=== PATIENT | male | born 1960 | race Caucasian/White ===

== ENCOUNTER 2016-11-01 09:10 | Observation (INO) | payer OTHER ==
[2016-11-01] VITALS (10 sets, daily range): BP systolic 99–126; BP diastolic 53–98; PULSE 67–85; RESP 16–20; TEMP 97.2–98.2; O2SAT 96–100
[~2016-11-01] VITALS: Ht 182.9 cm; Wt 85.1 kg
--- NOTE | 2016-11-01 09:27 | PD ---
HPI Chief Complaint: Chest Pain Time Seen by Provider: 09:15 Travel History International Travel<30 days: No (unknown) Contact w/Intl Traveler<30days: No (unknown) History of Present Illness HPI 56yo M with no PMH was sent here from urgent care with c/o left chest pain since 10pm last night. Pt states it is pressure, left sided, nonradiating and constant. Associated with intermittent numbness in left hand. +Productive cough. Denies any fever, sob, n/v, diaphoresis, abdominal pain, focal weakness. Chest pain is worst with movement and pt did go swimming yesterday. Pt denies any history of chest pain and has never seen a manager market research. +heavy daily cigarette smoker. Pt given aspirin 81mg and sublingual nitro x1 in urgent care. PFSH Social History Tobacco Use: Yes Allergies-Medications (Allergen,Severity, Reaction): Coded Allergies: No Known Allergies (Unverified , 11/01/16) Reported Meds & Prescriptions Reported Meds & Active Scripts Active Review of Systems Except as stated in HPI: all other systems reviewed are Neg Physical Exam Narrative GENERAL: 56yo M in mild distress. SKIN: Warm and dry. HEAD: Atraumatic. Normocephalic. EYES: Pupils equal and round. No scleral icterus. No injection or drainage. ENT: No nasal bleeding or discharge. Mucous membranes pink and moist. NECK: Trachea midline. No JVD. CARDIOVASCULAR: Regular rate and rhythm. No murmur appreciated. RESPIRATORY: No accessory muscle use. Clear to auscultation. Breath sounds equal bilaterally. CHEST WALL: +TTP left chest. No rash. GASTROINTESTINAL: Abdomen soft, non-tender, nondistended. Hepatic and splenic margins not palpable. MUSCULOSKELETAL: No obvious deformities. No clubbing. No cyanosis. No edema. No calf tenderness. NEUROLOGICAL: Awake and alert. No obvious cranial nerve deficits. Motor grossly within normal limits. Normal speech. PSYCHIATRIC: Appropriate mood and affect; insight and judgment normal. Data Data Last Documented VS Vital Signs Date Time Temp Pulse Resp B/P Pulse Ox O2 Delivery O2 Flow Rate FiO2 11/01/16 09:45 78 18 115/69 98 Room Air 11/01/16 09:22 98.2 Orders Basic Metabolic Panel (Bmp) (11/01/16 09:16) Ckmb (Isoenzyme) Profile (11/01/16 09:16) Complete Blood Count With Diff (11/01/16 09:16) Magnesium (Mg) (11/01/16 09:16) Prothrombin Time / Inr (Pt) (11/01/16 09:16) Act Partial Throm Time (Ptt) (11/01/16 09:16) Troponin I (11/01/16 09:16) Chest, Single Ap (11/01/16 09:16) Ecg Monitoring (11/01/16 09:16) Bilateral Bp Monitoring (11/01/16 09:16) Iv Access Insert/Monitor (11/01/16 09:16) Oximetry (11/01/16 09:16) Oxygen Administration (11/01/16 09:16) Ibuprofen (Motrin) (11/01/16 09:30) Admit Order (Ed Use Only) (11/01/16 10:34) Labs Laboratory Tests Test 11/01/16 09:15 White Blood Count 13.7 TH/MM3 Red Blood Count 4.75 MIL/MM3 Hemoglobin 14.6 GM/DL Hematocrit 44.0 % Mean Corpuscular Volume 92.7 FL Mean Corpuscular Hemoglobin 30.8 PG Mean Corpuscular Hemoglobin 33.2 % Concent Red Cell Distribution Width 11.9 % Platelet Count 339 TH/MM3 Mean Platelet Volume 9.0 FL Neutrophils (%) (Auto) 62.2 % Lymphocytes (%) (Auto) 27.1 % Monocytes (%) (Auto) 7.0 % Eosinophils (%) (Auto) 3.2 % Basophils (%) (Auto) 0.5 % Neutrophils # (Auto) 8.5 TH/MM3 Lymphocytes # (Auto) 3.7 TH/MM3 Monocytes # (Auto) 1.0 TH/MM3 Eosinophils # (Auto) 0.4 TH/MM3 Basophils # (Auto) 0.1 TH/MM3 CBC Comment DIFF FINAL Differential Comment Prothrombin Time 9.9 SEC Prothromb Time International 0.9 RATIO Ratio Activated Partial 27.7 SEC Thromboplast Time D-Dimer Quantitative (PE/DVT) 0.43 MG/L FEU Sodium Level 141 MEQ/L Potassium Level 4.1 MEQ/L Chloride Level 105 MEQ/L Carbon Dioxide Level 28.8 MEQ/L Anion Gap 7 MEQ/L Blood Urea Nitrogen 10 MG/DL Creatinine 0.99 MG/DL Estimat Glomerular Filtration 78 ML/MIN Rate Random Glucose 113 MG/DL Calcium Level 9.1 MG/DL Magnesium Level 1.9 MG/DL Total Creatine Kinase 93 U/L Troponin I LESS THAN 0.02 NG/ML MDM Medical Decision Making Medical Screen Exam Complete: Yes Emergency Medical Condition: Yes Interpretation(s) EKG: NSR 74bpm. Normal axis. No ST segment elevation or depression. Differential Diagnosis Atypical chest pain vs. PNA vs. musculoskeletal pain Narrative Course 56yo M with atypical chest pain since yesterday. However, pt is a heavy cig smoker and never had this before. Pt has not had recent cardiac work up. Will do ekg, CXR, labs, and give ibuprofen. Will admit for observation for chest pain center and possible cardiac stress test. Labs reviewed, leukocytosis at 13.7. Troponin negative. CXR negative. Pt given ibuprofen and pain improved. This does sound like atypical musculoskeletal chest pain but pt states that he does a lot of strenuous activity at work but never had this and sometimes he does become sob with walking. Pt agreed to admission for observation and serial EKG and cardiac enzyme. VS stable. Discussed with Dr. Avila and accepted to chest pain center. Diagnosis Primary Impression: Chest pain Qualified Code: R07.9 - Chest pain, unspecified type Admitting Information Admitting Physician Requests: Observation Scripts Clindamycin 300 Mg [id number] Mg PO Q6H #24 CAP Ref 0 Prov:Gema Brothers 11/03/16 Naproxen (Naproxen EC)500 Mg [id number] Mg PO BID PRN (inflammation) #10 TAB Ref 0 Prov:Gema Brothers 11/03/16 Aspirin (Aspirin EC)81 Mg [id number] Mg PO DAILY #30 TAB Ref 0 Prov:Gema Brothers 11/03/16 Sabrina Walton DO Nov 01, 2016 09:27
[2016-11-01] MEDS ORDERED: IBUPROFEN 600 MG TAB PO ONE (09:30)
[2016-11-01 09:34] LABS: AUTOMATED NEUTROPHIL # 8.5 TH/MM3 (1.8-7.7); BASOPHIL # 0.1 TH/MM3 (0-0.2); BASOPHIL % 0.5 % (0.0-2.0); EOSINOPHIL # 0.4 TH/MM3 (0-0.4); EOSINOPHIL % 3.2 % (0.0-4.0); LYMPH % 27.1 % (9.0-44.0); LYMPHOCYTE # 3.7 TH/MM3 (1.0-4.8); MEAN CELL VOLUME 92.7 FL (80.0-100.0); MEAN CORPUSCULAR HEMOGLOBIN 30.8 PG (27.0-34.0); MEAN CORPUSCULAR HGB CONC 33.2 % (32.0-36.0); NEUT % 62.2 % (16.0-70.0); PLATELET COUNT 339 TH/MM3 (150-450); RED BLOOD COUNT 4.75 MIL/MM3 (4.50-5.90); RED CELL DISTRIBUTION WIDTH 11.9 % (11.6-17.2); WHITE BLOOD COUNT 13.7 TH/MM3 (4.0-11.0)
[2016-11-01 09:35] LABS: HEMO FLAGS DIFF FINAL
[2016-11-01 09:49] LABS: APTT (PATIENT) 27.7 SEC (24.3-30.1); INTERNATIONAL NORMALIZED RATIO 0.9 RATIO; PROTHROMBIN TIME - PATIENT 9.9 SEC (9.8-11.6)
[2016-11-01 09:51] LABS: BICARBONATE 28.8 MEQ/L (21.0-32.0); BLOOD UREA NITROGEN 10 MG/DL (7-18)
[2016-11-01 09:52] LABS: MAGNESIUM 1.9 MG/DL (1.5-2.5)
[2016-11-01 09:55] LABS: ANION GAP 7 MEQ/L (5-15); CHLORIDE 105 MEQ/L (98-107); GLOMERULAR FILTRATION RATE 78 ML/MIN (>89); POTASSIUM 4.1 MEQ/L (3.5-5.1); SODIUM (NA) 141 MEQ/L (136-145)
--- NOTE | 2016-11-01 09:56 | RADHPO ---
EXAM DATE/TIME: 11/01/2016 09:34 [facility] COMPARISON: No previous studies available for comparison. INDICATIONS : Left side chest pain radiating to shoulder blade. MEDICAL HISTORY : None. SURGICAL HISTORY : None. ENCOUNTER: Initial ACUITY: 1 day PAIN SCORE: 10/10 LOCATION: Left upper chest FINDINGS: A single view of the chest demonstrates the lungs to be symmetrically aerated without evidence of mas s, infiltrate or effusion. There is a 5 mm granuloma in the right upper lung. The cardiomediastinal contours are unremarkable. Osseous structures are intact. CONCLUSION: No acute disease. Conrad Spring MD on November 01, 2016 at 9:50 Board Certified Radiologist. This report was verified electronically.
[2016-11-01 09:58] LABS: CREATINE KINASE 93 U/L (39-308)
[2016-11-01] MEDS ORDERED: SODIUM CHLORIDE 0.9% FLUSH 5 ML FLUSH IVF PRN (11:15)
[2016-11-01] MEDS ORDERED: ONDANSETRON HCL 4 MG/2 ML VIAL IV PRN (11:15)
[2016-11-01] MEDS ORDERED: ACETAMINOPHEN 500 MG CPLT PO PRN (11:15)
[2016-11-01] MEDS ORDERED: ASPIRIN 81 MG CHEW TAB CHEW ONE (11:15)
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
[2016-11-01 12:53] LABS: CREATINE KINASE 81 U/L (39-308)
[2016-11-01 15:26] LABS: CREATINE KINASE 72 U/L (39-308)
[2016-11-01] MEDS ORDERED: REGADENOSON INJ 0.4 MG/5 ML SYR IV ONE (17:51)
--- NOTE | 2016-11-01 18:54 | RADHPO ---
EXAM DATE/TIME: 11/01/2016 17:58 [facility] COMPARISON: No previous studies available for comparison. INDICATIONS : Chest pain with shortness of breath for one day. Angina. DOSE: 26.1 mCi Tc99m Myoview at stress. 8.5 mCi Tc99m Myoview at rest. 0.4 mg Lexiscan STRESS SYMPTOMS: Shortness of breath. EJECTION FRACTION: 55% MEDICAL HISTORY : Smoker. SURGICAL HISTORY : None. ENCOUNTER: Initial ACUITY: 1 day PAIN SCALE: 5/10 LOCATION: Left chest TECHNIQUE: The patient underwent pharmacologic stress with infusion of prescribed dose. Continuous ECG tracing was monitored during stress. Gated SPECT imaging was performed after stress and conventional SPECT i maging was performed at rest. The examination was performed on a SPECT/CT scanner, both attenuation and non-corrected datasets were reviewed. FINDINGS: DISTRIBUTION: The maximum perfused segment at stress is in the septum and lateral allison. PERFUSION STUDY: Small area of mild reversibility seen within the inferoseptal wall. No significant reversible perfusi on defects. Minimal fixed defect along the inferior wall.. GATED STUDY: There is intact wall motion and thickening without hypokinetic or dyskinetic segments. CONCLUSION: 1. Small reversible perfusion defect within the inferoseptal wall could be related to a small area of ischemia.. 2. Normal ejection fraction of 55%. 3. 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 RISK CATEGORY: Low (<1% Annual Mortality Rate) Cm Artis MD on November 01, 2016 at 18:47 Board Certified Radiologist. This report was verified electronically.
[2016-11-01] MEDS: SODIUM CHLORIDE 0.9% FLUSH 5 ML FLUSH IVF SCH (21:00)
[2016-11-01] MEDS ORDERED: LORazepam 2 MG/ML VIAL IV PUSH PRN (21:15)
[2016-11-02] VITALS: BP 114/69; PULSE 80; RESP 18; TEMP 99.1; O2SAT 97
[2016-11-02 04:00] VITALS: BP 120/73; PULSE 79; RESP 16; TEMP 99.3; O2SAT 98
[2016-11-02] MEDS: NITROGLYCERIN 0.4 MG SL 25 TABS/BTL SL PRN ×3 (06:50→07:02)
[2016-11-02] MEDS: MORPHINE SULFATE 4 MG/ML INJ IV PRN (07:23)
--- NOTE | 2016-11-02 07:35 | HHI.PR ---
Subjective Remarks Follow-up for chest pain. RN informs us the patient is having chest pain again and has received nitroglycerin SL. Patient indicates substernal pressure states it feels like someone is sitting on his chest. He states when he is still his pain is 3/10 but when he moves it increases to a 10/10. He does admit to shortness of breath and is also coughing up mucus. States the pain is worse with coughing. States he is gagging after coughing. Objective Vitals Vital Signs Date Time Temp Pulse Resp B/P Pulse Ox O2 Delivery O2 Flow Rate FiO2 11/02/16 04:00 99.3 79 16 120/73 98 11/02/16 00:00 99.1 80 18 114/69 97 11/01/16 20:25 97.2 85 20 126/98 99 11/01/16 19:02 76 Room Air 11/01/16 19:00 76 16 113/66 97 Room Air 11/01/16 17:07 79 17 100/62 97 Room Air 11/01/16 16:02 Room Air 11/01/16 16:01 78 17 99/53 100 Room Air 11/01/16 13:55 70 16 111/75 96 Room Air 11/01/16 12:55 70 16 111/69 96 Room Air 11/01/16 12:02 16 11/01/16 11:58 69 16 104/69 98 Room Air 11/01/16 11:58 99 Room Air 11/01/16 11:58 67 16 104/69 98 Room Air 11/01/16 09:45 78 18 115/69 98 Room Air 11/01/16 09:30 84 18 100 Room Air 11/01/16 09:27 83 18 122/61 100 Room Air 109/73 11/01/16 09:22 98.2 84 18 122/61 100 I/O 11/01/16 11/01/16 11/01/16 11/02/16 11/02/16 11/02/16 06:59 14:59 22:59 06:59 14:59 22:59 Intake Total 0 ml Output Total 250 ml Balance -250 ml Intake IV Total 0 ml Output Urine Total 250 ml Result Diagram: 11/01/1615 11/01/1615 Imaging Last Impressions Myocardial Perfusion Scan Nuc Med 11/01/16 1613 Signed Impressions: Service Date/Time: Tuesday, November 01, 2016 17:58 - CONCLUSION: 1. Small reversible perfusion defect within the inferoseptal wall could be related to a small area of ischemia.. 2. Normal ejection fraction of 55%%. 3. 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 RISK CATEGORY: Low (<1%% Annual Mortality Rate) Cm Artis MD Chest X-Ray 11/01/16 0916 Signed Impressions: Service Date/Time: Tuesday, November 01, 2016 09:34 - CONCLUSION: No acute disease. Conrad Spring MD Objective Remarks GENERAL: Well-nourished, well-developed patient appears in pain lying supine in bed. SKIN: Warm and dry. HEAD: Atraumatic. Normocephalic. CHEST: Reproducible pain over the left chest. CARDIOVASCULAR: Regular rate and rhythm. RESPIRATORY: No accessory muscle use. Clear to auscultation. Breath sounds equal bilaterally. NEUROLOGICAL: Awake and alert. Normal speech. PSYCHIATRIC: Appropriate mood and affect; insight and judgment normal. Urinary Catheter: No Vascular Central Line Catheter: No A/P Problem List: (1) Chest pain ICD Code: R07.9 Status: Acute (2) Leukocytosis ICD Code: D72.829 Status: Acute (3) Tobacco use ICD Code: Z72.0 Status: Acute Assessment and Plan 56-year-old male with: Chest pain: Left anterior chest radiating to the left clavicle with tingling and weakness in the left hand. Although patient states he had pressure over the chest relieved with nitroglycerin he states it is worse with sitting or standing up. Patient additionally has reproducible tenderness over the left chest and went swimming in the ocean. EKGs x 3 personally interpreted with questionable incomplete right bundle branch block, although rSr' likely normal variant in septal leads; no ischemic abnormalities. Patient is continuing to have severe pain. He does have an obvious musculoskeletal component as his pain is much worse when he moves, but he describes the pain as a pressure like someone is sitting on his chest which is concerning. -D-dimer normal. -[place]/morphine for pain prn -325 mg daily aspirin -Patient had Lexiscan performed last night which showed a small reversible perfusion defect within the inferoseptal wall which could be related to small area of ischemia. Normal EF of 55%. There is additionally a fixed defect along the inferior wall which could be related to old infarct. -Due to recurrent chest pain this morning, 4th EKG ordered and personally interpreted with no evidence of ischemia. Additional troponin ordered which is negative. -Nitroglycerin ointment to be applied. -Later this morning I was made aware the patient's brother had an aortic dissection. Due to continuing severe pain, stat CTA chest ordered to evaluate for aortic dissection. Patient had mild hypotension due to nitroglycerin, but BP is now normal. If CTA negative will call mechanical system technician to determine further management. Leukocytosis: WBC 13.7 likely stress reaction. Patient has had cough and congestion, but chest x-ray personally reviewed without acute abnormality. Tobacco use: Counseled on cessation. Written by Gema Brothers PA-C acting as scribe for Dr. Higuera on 11/02/16 at 0725. The documentation accurately reflects the work and decisions performed face-to- face by mo Dr. Higuera on 11/02/16 at 0725. Problem Qualifiers (1) Chest pain: Qualified Code: R07.9 - Chest pain, unspecified type Gema Brothers Nov 02, 2016 07:35
[2016-11-02 08:00] VITALS: BP 102/73; PULSE 82; RESP 18; O2SAT 98
[2016-11-02] MEDS: NITROGLYCERIN 2% OINT 1 GM PACKET TOP SCH ×3 (08:00→20:01)
[2016-11-02 08:43] LABS: CREATINE KINASE 70 U/L (39-308)
[2016-11-02] MEDS ORDERED: ASPIRIN 325 MG TAB PO SCH ×2 (09:00)
[2016-11-02] MEDS: SODIUM CHLORIDE 0.9% FLUSH 5 ML FLUSH IVF SCH ×2 (09:00→20:01)
[2016-11-02] MEDS ORDERED: ASPIRIN 81 MG CHEW TAB PO SCH (09:00)
[2016-11-02] MEDS ORDERED: IOHEXOL 350 MG/ML 10 ML VIAL (for RAD DIAG) IV ONE (11:06)
--- NOTE | 2016-11-02 11:11 | RADHPO ---
EXAM DATE/TIME: 11/02/2016 10:00 [facility] COMPARISON: MYOCARDIAL PERF PHARM SPECT, GATED W/EF, November 01, 2016, 17:58. INDICATIONS : Left sided chest pain for three days. IV CONTRAST: 99 cc Omnipaque 350 (iohexol) IV RADIATION DOSE: 16.07 CTDIvol (mGy) MEDICAL HISTORY : None SURGICAL HISTORY : None. ENCOUNTER: Initial ACUITY: 3 days PAIN SCALE: 8/10 LOCATION: Left chest TECHNIQUE: Volumetric scanning was performed using a multi-row detector CT scanner. The data was post processed with a variety of visualization algorithms including full volume maximum intensity projection, multi -planar sliding thin slab reformation, curved planar reformation, and surface rendering techniques. Using automated exposure control and adjustment of the mA and/or kV according to patient size, radiat ion dose was kept as low as reasonably achievable to obtain optimal diagnostic quality images. FINDINGS: LUNGS: There is consolidation in both lower lobes. There is a calcified granuloma in the right upper lobe on image 27 measuring 6 mm. MEDIASTINUM: No abnormally enlarged lymph nodes by CT criteria. No axillary or hilar abnormalities are identified. ABDOMEN: The liver and spleen are free of focal defects. The gallbladder and pancreas demonstrate no abnormali ty. The adrenal glands are normal. The kidneys demonstrate no evidence of solid renal mass or hydrone phrosis. No free fluid or abdominal masses are identified. No para-aortic adenopathy is seen. PELVIS: No evidence of free fluid or pelvic mass. No abnormally enlarged inguinal or retroperitoneal lymph no jennifer are present. The bladder is unremarkable. THORACIC AORTA: The thoracic aortic root is normal with normal branching of the great vessels. There is no evidence of aneurysm or dissection. ABDOMINAL AORTA: The aorta is normal in caliber without aneurysm or dissection. The renal arteries are patent bilater ally. The proximal celiac and superior mesenteric arteries are patent and normal in diameter. Ther e is mild atherosclerotic plaquing. PELVIC VESSELS: The internal iliac and external iliac vessels are patent without aneurysm or stenosis. CONCLUSION: 1. Pulmonary consolidation lower lobes and calcified granuloma in the right upper lobe. 2. No evidence for aneurysm or dissection. Roni Snow MD on November 02, 2016 at 11:06 Board Certified Radiologist. This report was verified electronically.
[2016-11-02 12:00] VITALS: BP 142/70; PULSE 88; RESP 18; TEMP 97; O2SAT 95
[2016-11-02] MEDS ORDERED: AZITHROMYCIN INJ 500 MG in SODIUM CHLOR 0.9% 250 ML INJ 250 ML IV SCH (12:00)
[2016-11-02] MEDS: ACETAMINOPHEN/HYDROcodone 325 MG/7.5 MG TAB PO PRN ×2 (12:15→20:02)
[2016-11-02] MEDS ORDERED: cefTRIAXone INJ 1,000 MG in SODIUM CHLORIDE 0.9% INJ 100 ML IV SCH (13:00)
[2016-11-02] MEDS: CLINDAMYCIN INJ 600 MG in SODIUM CHLORIDE 0.9% INJ 100 ML IV SCH ×2 (14:57→20:01)
[2016-11-02] MEDS ORDERED: KETOROLAC TROMETHAMINE 30 MG/ML (IVP) VIAL IV PUSH ONE (15:00)
[2016-11-02 16:00] VITALS: BP 111/71; PULSE 92; RESP 18; TEMP 98.6; O2SAT 98
--- NOTE | 2016-11-02 16:55 | EKG ---
Date Performed: 11/01/2016 Time Performed: 09:45:18 PTAGE: 56 years EKG: Sinus rhythm Incomplete RBBB Borderline ECG PREVIOUS TRACING : 11/01/2016 09.08 DOCTOR: Todd Acosta Interpretating Date/Time 11/02/2016 16:54:54
--- NOTE | 2016-11-02 17:39 | EKG ---
Date Performed: 11/01/2016 Time Performed: 16:24:08 PTAGE: 56 years EKG: Sinus rhythm rSr'(V1) - probable normal variant Normal ECG NO PREVIOUS TRACING DOCTOR: Todd Acosta Interpretating Date/Time 11/02/2016 17:38:14
--- NOTE | 2016-11-02 18:18 | TR ---
Date Performed: 11/01/2016 Time Performed: 18:02:13 DOCTOR: Todd Acosta DRUG LIST: CLINICAL HISTORY: CHEST PAIN REASON FOR TEST: Angina REASON FOR ENDING: OBSERVATION: CONCLUSION: Lexiscan stress test was performed under standard four minute protocol. Radionuclide was injected one minute prior to ending the test. Developed shortness of breath. Rare PACs were note d. No electrocardiographic abnormalities were present to suggest ischemia. Recovery was quick and un eventful with resolution of shortness of breath. Nuclear imaging and interpretation are pending. COMMENTS:
--- NOTE | 2016-11-02 18:18 | EKG ---
Date Performed: 11/02/2016 Time Performed: 07:53:02 PTAGE: 56 years EKG: Sinus rhythm rSr'(V1) - probable normal variant Normal ECG PREVIOUS TRACING : 11/01/2016 16.24 DOCTOR: Todd Acosta Interpretating Date/Time 11/02/2016 18:18:26
[2016-11-02 20:00] VITALS: BP 118/70; PULSE 85; PULSE 89; RESP 18; TEMP 98; O2SAT 96
[2016-11-03] VITALS: BP 109/60; PULSE 84; RESP 18; TEMP 98.8; O2SAT 95
[2016-11-03] MEDS: NITROGLYCERIN 2% OINT 1 GM PACKET TOP SCH ×3 (01:02→14:56)
[2016-11-03] MEDS: CLINDAMYCIN INJ 600 MG in SODIUM CHLORIDE 0.9% INJ 100 ML IV SCH ×3 (01:02→14:56)
[2016-11-03] MEDS: MORPHINE SULFATE 4 MG/ML INJ IV PRN (01:02)
[2016-11-03 04:00] VITALS: BP 99/67; PULSE 76; RESP 18; TEMP 98.8; O2SAT 95
[2016-11-03 08:02] VITALS: BP 106/66; PULSE 87; RESP 20; TEMP 97.4; O2SAT 95
[2016-11-03] MEDS ORDERED: ASPIRIN 81 MG CHEW TAB PO SCH (09:00)
[2016-11-03] MEDS: SODIUM CHLORIDE 0.9% FLUSH 5 ML FLUSH IVF SCH (10:34)
[2016-11-03] MEDS: ACETAMINOPHEN/HYDROcodone 325 MG/7.5 MG TAB PO PRN (10:40)
[2016-11-03 12:00] VITALS: BP 125/76; PULSE 90; RESP 20; TEMP 97.2; O2SAT 93
[2016-11-03 12:33] VITALS: RESP 18
--- NOTE | 2016-11-03 14:26 | HHI.DCPOC ---
Discharge Care Plan Diagnosis: (1) Chest pain (2) Leukocytosis (3) Pneumonia Goals to Promote Your Health * To prevent worsening of your condition and complications * To maintain your health at the optimal level Directions to Meet Your Goals Take your medications as prescribed Follow your dietary instruction Follow activity as directed Keep your appointments as scheduled Take your immunizations and boosters as scheduled If your symptoms worsen call your PCP, if no PCP go to Urgent Care Center or Emergency Room Smoking is Dangerous to Your Health. Avoid second hand smoke Call the 24-hour hour crisis hotline for domestic abuse at Dusty Higuera MD Nov 03, 2016 14:25
--- NOTE | 2016-11-03 14:27 | HHI.DS ---
Discharge Summary Admission Date Nov 01, 2016 at 10:35 Discharge Date: Nov 03, 2016 Admitting Diagnosis Chest pain (1) Chest pain ICD Code: R07.9 Diagnosis: Principal (2) Leukocytosis ICD Code: D72.829 Diagnosis: Principal (3) Tobacco use ICD Code: Z72.0 Diagnosis: Principal Procedures None Brief History - From Admission 56-year-old female with history of back pain but no other significant medical problems presents with complaint of chest pain. Patient states he drove from [place] to [place] on night although does state they stopped a few times. He states he rested on Friday and Friday of this week then started to get some sinus congestion and a cough with production of green sputum. Admits to some shortness of breath. He states he would cough hard in the morning and felt like he was going to vomit. He states [place] and last night he developed chest pain, pressure and tightness, over the left side of his chest. He states it lasted approximately half an hour until he took a couple of aspirin which alleviated the pain. He states he went out to eat and then his chest started hurting again and at 4:30 this morning it felt like an elephant was sitting on his chest with pain radiating into the left clavicle and back. He additionally had some tingling and weakness in his left hand. He admits to pain still over the left chest. He states it hurts worse when he tries to stand or sit up. He states it's tolerable now compared to before though. He denies any diaphoresis. States he went to an urgent care this morning and they gave him an 81 mg aspirin and nitroglycerin which helped. Denies hemoptysis, leg swelling, or history of DVT or PE. CBC/BMP: 11/01/16 0915 11/01/16 0915 Significant Findings Laboratory Tests Test 11/01/16 11/01/16 11/01/16 11/02/16 09:15 12:00 15:02 07:45 White Blood Count 13.7 TH/MM3 (4.0-11.0) Neutrophils # (Auto) 8.5 TH/MM3 (1.8-7.7) Monocytes # (Auto) 1.0 TH/MM3 (0-0.9) Estimat Glomerular Filtration 78 ML/MIN (>89) Rate Random Glucose 113 MG/DL (74-106) Troponin I LESS THAN 0.02 LESS THAN 0.02 LESS THAN 0.02 LESS THAN 0.02 NG/ML NG/ML NG/ML NG/ML (0.02-0.05) (0.02-0.05) (0.02-0.05) (0.02-0.05) Imaging Last Impressions Aorta CTA 11/02/16 0000 Signed Impressions: Service Date/Time: Wednesday, November 02, 2016 10:00 - CONCLUSION: 1. Pulmonary consolidation lower lobes and calcified granuloma in the right upper lobe. 2. No evidence for aneurysm or dissection. Roni Snow MD Myocardial Perfusion Scan Nuc Med 11/01/16 1613 Signed Impressions: Service Date/Time: Tuesday, November 01, 2016 17:58 - CONCLUSION: 1. Small reversible perfusion defect within the inferoseptal wall could be related to a small area of ischemia.. 2. Normal ejection fraction of 55%%. 3. 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 RISK CATEGORY: Low (<1%% Annual Mortality Rate) Cm Artis MD Chest X-Ray 11/01/16 0916 Signed Impressions: Service Date/Time: Tuesday, November 01, 2016 09:34 - CONCLUSION: No acute disease. Conrad Spring MD PE at Discharge GENERAL: Well-nourished, well-developed patient appears in pain lying supine in bed. SKIN: Warm and dry. HEAD: Atraumatic. Normocephalic. CHEST: Reproducible pain over the left chest. CARDIOVASCULAR: Regular rate and rhythm. RESPIRATORY: No accessory muscle use. Clear to auscultation. Breath sounds equal bilaterally. NEUROLOGICAL: Awake and alert. Normal speech. PSYCHIATRIC: Appropriate mood and affect; insight and judgment normal. Pt update on day of discharge The patient states that he feels better today. Chest pain is improved. He does still have pain in the left side of his chest with movement, but he is now able to lift his arm a lot more than he was yesterday. The area that is affected by the pain is much smaller today as well. Cough is productive. Denies shortness of breath. Feels that he is ready to go home. Hospital Course The patient was admitted for further evaluation of chest pain. Serial cardiac enzymes were negative. Nuclear stress test showed a small reversible perfusion defect in the inferoseptal wall. Cardiology was contacted and recommended medical management. The patient continued to have left-sided chest pain. CTA of the chest was done to rule out aortic dissection. No dissection or aneurysm was noted, but the patient was noted to have consolidation in both lung bases. He was started on antibiotics. Pain improved with a dose of Toradol. Much of his pain was felt to be musculoskeletal in origin. His pain did improve by the day of discharge. He felt that he was ready to go home. Pt Condition on Discharge: Stable Discharge Disposition: Discharge Home Discharge Time: <= 30 minutes Discharge Instructions DIET: Follow Instructions for: Heart Healthy Diet Activities you can perform: Regular-No Restrictions Follow up Referrals: PCP Follow-up - 1 Week New Medications: Aspirin (Aspirin EC) 81 Mg Tabdr 81 MG PO DAILY MA prevention #30 Ref 0 TAB Clindamycin (Clindamycin) 300 Mg Cap 300 MG PO Q6H Infection #[address] Ref [address] (Naproxen EC) 500 Mg Tabdr 500 MG PO BID PRN inflammation #10 Ref 0 TAB Dusty Higuera MD Nov 03, 2016 14:27
[2016-11-03] MEDS ORDERED: CLIN1CAP6 PO (14:28)
[2016-11-03] MEDS ORDERED: ASPI81TA11 PO (14:28)
[2016-11-03] MEDS ORDERED: NAPR1TAB34 PO (14:28)
[2016-11-04] MEDS ORDERED: CLINDAMYCIN INJ 600 MG in SODIUM CHLORIDE 0.9% INJ 100 ML IV SCH (02:00)
== END 2016-11-03 16:37 | disposition home or self-care (01) ==
LOC: PHED 09:10 → PHEDA 10:35 → PHEDH 14:35 → PH3A 20:25
PROVIDERS: ADMIT Family Medicine; ATTEND Family Medicine
DX: R07.9 Chest pain, unspecified (principal); D72.829 Elevated white blood cell count, unspecified; R06.02 Shortness of breath; R20.0 Anesthesia of skin; I95.9 Hypotension, unspecified; F43.9 Reaction to severe stress, unspecified; F17.210 Nicotine dependence, cigarettes, uncomplicated
CPT/HCPCS: 71010; 71275; 74174; 78452; 80048; 82550; 83735; 84484; 85025; 85379; 85610; 85730; 93005; 93017; 99285; A9502; G0378; J1885; J2060; J2270; J2785; Q9967